=== PATIENT | female | born 1995 | race American Indian/Alaskan Native ===

== ENCOUNTER 2016-10-07 18:25 | Outpatient (CLI) | payer MEDICAID ==
[2016-10-07 18:48] LABS: Urine Drugs of Abuse Note Disclamer
[2016-10-07 19:16] LABS: Bilirubin,Urine NEG (Negative); Blood,Urine SM (Negative); Ketones,Urine NEG (Negative); Leukocyte Esterase,Urine MOD (Negative); Mucus,Urine FEW /HPF; Nitrite,Urine NEG (Negative); Protein,Urine <15 mg/dL mg/dL (Negative); Urobilinogen,Urine < 2.0 mg/dL (<2.0)
[2016-10-07] MEDS ORDERED: LACTATED RINGERS 1,000 ML IV ONE (19:26)
[2016-10-07 19:43] VITALS: BP 116/66
[2016-10-07] MEDS ORDERED: VISTARIL PO ONE (19:43)
[2016-10-07 20:06] LABS: Hematocrit 33.4 % (30.3-42.9); Hemoglobin 11.4 gm/dl (10.1-14.3); Mean Corpuscular HGB Conc 34 % (30-34); Mean Corpuscular Hemoglobin 32 pg (28-32); Mean Corpuscular Volume 93 fl (79-97); Platelet Count 188 K/mm3 (140-440); Red Blood Count 3.61 M/mm3 (3.65-5.03); Red Cell Distribution Width 12.7 % (13.2-15.2); White Blood Count 9.8 K/mm3 (4.5-11.0)
== END 2016-10-07 20:37 | disposition home or self-care (01) ==
LOC: TRG 18:25
PROVIDERS: ATTEND Obstetrics & Gynecology
DX: O47.02 False labor before 37 completed weeks of gestation, second trimester (principal); Z3A.24 24 weeks gestation of pregnancy
CPT/HCPCS: 36415; 59025; 80307; 81001; 85027; 96360; J7120; Q0177

== ENCOUNTER 2017-03-06 22:42 | Emergency (ER) | payer MEDICAID ==
[2017-03-06 23:05] VITALS: BP 123/69
== END 2017-03-06 23:00 | disposition left against medical advice (07) ==
LOC: ED 22:42
DX: Z53.21 Procedure and treatment not carried out due to patient leaving prior to being seen by health care provider (principal)